=== PATIENT | male | born 1980 | race Hispanic/Latino ===

== ENCOUNTER 2019-03-22 19:03 | Emergency (ER) | payer BC ==
[2019-03-22 19:09] VITALS: BP 147/82; PULSE 94; RESP 16; TEMP 98.6; O2SAT 96
[2019-03-22 19:10] VITALS: BMI 23.1
--- NOTE | 2019-03-22 19:32 | ED PDOC ---
HPI: General Adult Time Seen by Provider: 03/22/19 19:15 Chief Complaint (Nursing): Back Pain Chief Complaint (Provider): back pain History Per: Patient History/Exam Limitations: no limitations Onset/Duration Of Symptoms: Days (8x) Current Symptoms Are (Timing): Still Present Severity: Moderate Additional Complaint(s): 39 year old male with no pertinent past medical history presents to the ED for an evaluation of lower back pain ongoing for 8x days. Patient states that the pain worsens with leaning forward. Patient states that he walks around a lot with his (around [place]). Patient also reports having swelling to his lower back and is concerned that it may be a tumor. Patient reports taking ibuprofen prior to arrival with no relief. PMD: Kenny Beck MD Past Medical History Reviewed: Historical Data, Nursing Documentation, Vital Signs Vital Signs: Last Vital Signs Temp 98.6 F 03/22/19 19:09 Pulse 94 H 03/22/19 19:09 Resp 16 03/22/19 19:09 BP 147/82 03/22/19 19:09 Pulse Ox 96 03/22/19 19:09 JASKARAN Report Viewed: Yes - Medical History PMH: No Chronic Diseases - Family History Family History: States: No Known Family Hx - Home Medications Home Medications: Ambulatory Orders Medication Instructions Recorded Ibuprofen [Motrin] 600 mg PO Q8 PRN #21 tab 03/22/19 diaZEpam [Valium] 5 mg PO Q8 PRN #2 tab 03/22/19 - Allergies Allergies/Adverse Reactions: Allergies Allergy/AdvReac Type Severity Reaction Status Date / Time No Known Allergies Allergy Verified 03/22/19 19:26 Review of Systems ROS Statement: Except As Marked, All Systems Reviewed And Found Negative Musculoskeletal: Positive for: Back Pain (lower back pain, swelling to left lower back) Physical Exam - Reviewed Nursing Documentation Reviewed: Yes Vital Signs Reviewed: Yes - Physical Exam Appears: Positive for: Well, Non-toxic, No Acute Distress Head Exam: Positive for: ATRAUMATIC, NORMOCEPHALIC Skin: Positive for: Normal Color, Warm, Dry Cardiovascular/Chest: Positive for: Regular Rate, Rhythm Respiratory: Positive for: Normal Breath Sounds Back: Positive for: Other (mild cyst to lower lumbar area. (-) tenderness, (-) bony tenderness elicited) Neurological/Psych: Positive for: Awake, Alert, Oriented (3x) - ECG O2 Sat by Pulse Oximetry: 96 (RA) Pulse Ox Interpretation: Normal - Progress ED Course And Treament: XRY OF L SPINE: WNL Medical Decision Making Medical Decision Makin:15 Initial impression: 39 year old male with back pain Initial plan: * XRay LS spine * reevaluation Scribe Attestation: Documented by Krista Gallegos, acting as a scribe for Joe Donis PA-C. Provider Scribe Attestation: All medical record entries made by the Scribe were at my direction and personally dictated by me. I have reviewed the chart and agree that the record accurately reflects my personal performance of the history, physical exam, medical decision making, and the department course for this patient. I have also personally directed, reviewed, and agree with the discharge instructions and disposition. Disposition - Clinical Impression Clinical Impression: Back strain - Patient ED Disposition Is Patient to be Admitted: No - Disposition Disposition: Routine/Home Disposition Time: 19:54 Condition: FAIR Prescriptions: diaZEpam [Valium] 5 mg PO Q8 PRN #2 tab PRN Reason: Muscle Spasm Ibuprofen [Motrin] 600 mg PO Q8 PRN #21 tab PRN Reason: Pain, Moderate (4-7) Instructions: Low Back Pain in Adults Forms: [facility] ED School/Work Excuse
--- NOTE | 2019-03-23 10:29 | RAD ---
Date of service: 03/22/2019 PROCEDURE: Radiographs of the Lumbar Spine. HISTORY: Back Pain. No history of recent/ related trauma provided. COMPARISON: No prior. TECHNIQUE: 5 views obtained. FINDINGS: BONES: Normal alignment. No listhesis. No fracture. DISC SPACES: Unremarkable. OTHER FINDINGS: None. IMPRESSION: Unremarkable radiographs of the lumbar spine.
== END 2019-03-22 20:05 | disposition home or self-care (01) ==
LOC: H.ER 19:03
DX: S39.012A Strain of muscle, fascia and tendon of lower back, initial encounter (principal); X58.XXXA Exposure to other specified factors, initial encounter; Y92.89 Other specified places as the place of occurrence of the external cause